=== PATIENT | female | born 1960 | race Caucasian/White ===

== ENCOUNTER → 2021-02-24 | Outpatient (CLI) | payer OTHER | LOC: WCC 10:56 | PROVIDERS: ATTEND Family Medicine | DX: T84.89XA Other specified complication of internal orthopedic prosthetic devices, implants and grafts, initial encounter (principal); E11.40 Type 2 diabetes mellitus with diabetic neuropathy, unspecified; S51.801A Unspecified open wound of right forearm, initial encounter; S51.802A Unspecified open wound of left forearm, initial encounter; S71.002A Unspecified open wound, left hip, initial encounter; N28.89 Other specified disorders of kidney and ureter; I10 Essential (primary) hypertension; L01.09 Other impetigo; R21 Rash and other nonspecific skin eruption; K21.9 Gastro-esophageal reflux disease without esophagitis; F32.9 Major depressive disorder, single episode, unspecified | CPT/HCPCS: 36415; 82948; 87071; 87075; 87186; 87205 ==